=== PATIENT | male | born 1945 | race Caucasian/White ===

== ENCOUNTER 2017-12-20 17:34 | Emergency (ER) | payer MEDICARE, OTHER ==
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
[2017-12-20] MEDS ORDERED: HYDROcod/ACETAM 10 MG/325 MG TABLET PO STA (20:10)
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
[2017-12-20 20:50] VITALS: BP 138/75
== END 2017-12-20 21:20 | disposition home or self-care (01) ==
LOC: ED 17:34
DX: S52.291A Other fracture of shaft of right ulna, initial encounter for closed fracture (principal); V03.00XA Pedestrian on foot injured in collision with car, pick-up truck or van in nontraffic accident, initial encounter; Y92.89 Other specified places as the place of occurrence of the external cause
CPT/HCPCS: 73090; 99283; A9270